=== PATIENT | female | born 1950 | race Caucasian/White ===

== ENCOUNTER → 2019-05-17 10:17 | Outpatient (CLI) | payer MEDICARE, OTHER, SELFPAY ==
--- NOTE | 2019-05-17 10:22 | BI_ITS ---
MAMMOGRAPHY - BILATERAL SCREENING REASON FOR EXAM: Female, 68 years old. Routine annual screening examination. PERTINENT HISTORY: Aunt with breast cancer. Remote right breast aspiration. TECHNIQUE: Digital bilateral breast kaden (3D mammographic acquisition) in the CC and MLO projections. 2-D mediolateral oblique (MLO) and craniocaudad (CC) views of both breasts were obtained. CAD: Full Field Digital Mammography with Computer Added Detection was performed. COMPARISON: Comparison is made with prior study dated September 02, 2016 and August 22, 2015. FINDINGS: Breast Composition: The breasts are heterogeneously dense, which may obscure small masses. There are no dominant masses or suspicious calcifications. Stable bilateral scattered calcifications as well as small bilateral axillary lymph nodes. No other significant abnormalities are identified. There has been no significant change since the prior study. BI/SCREEN MAMM (CAD) W/KADEN BILAT IMPRESSION: Stable bilateral screening mammogram. Yearly follow-up mammogram recommended. (A) ASSESSMENT CATEGORY: BIRADS Category 2: Benign. A letter regarding these results will be sent to the patient by the facility within 30 days. Approximately 10% of breast cancers are not detected by mammography. A normal mammogram should not delay biopsy of a clinically suspicious abnormality. [id number] Electronically Signed: Woody Whitt, at 11:32 EDT , Service support ,
== END ==
PROVIDERS: Family Provider Family Medicine; PCP Family Medicine; Referring Provider Obstetrics & Gynecology; Visit Provider Obstetrics & Gynecology
DX: Z12.31 Encounter for screening mammogram for malignant neoplasm of breast (principal); Z80.3 Family history of malignant neoplasm of breast
CPT/HCPCS: 77063; 77067

== ENCOUNTER 2020-06-12 14:34 | Observation (INO) | payer MEDICARE, OTHER, SELFPAY ==
[2020-06-11 08:23] VITALS: BMI 30.9
[2020-06-12] VITALS (16 sets, daily range): BP systolic 104–153; BP diastolic 57–97; PULSE 77–108; RESP 14–18; TEMP 35.9–37.2; O2SAT 93–100; BMI 31.3
--- NOTE | 2020-06-12 08:00 | HP_ITS ---
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 Is patient in pain?: No Allergies Sulfa (Sulfonamide Antibiotics) Allergy (Mild, Verified 06/11/20 08:24) Hives tramadol Allergy (Mild, Verified 06/11/20 08:24) Hives Medications B-complex with vitamin C 1 cap PO DAILY 06/11/20 [History Confirmed 06/11/20] aspirin 81 mg tablet,delayed release 81 mg PO DAILY 06/11/20 [History Confirmed 06/11/20] calcium ayq-cja-H1-Xu-lqjnnx-Hx-boron 250 mg-40 mg-125 unit tablet tab PO 06/11/20 [History] cholecalciferol (vitamin D3) 100 mcg (4,000 unit) capsule 100 mcg PO DAILY 06/11/20 [History] lisinopril 10 mg tablet PO 06/11/20 [History Confirmed 06/11/20] lovastatin 10 mg tablet mg PO 06/11/20 [History Confirmed 06/11/20] mecobalamin (vitamin B12) 5,000 mcg lozenge 5,000 mcg PO DAILY 06/11/20 [History Confirmed 06/11/20] omeprazole 40 mg capsule,delayed release PO BID cap 06/11/20 [History Confirmed 06/11/20] [facility] Medical History Barretts esophagus (Acute) Cholelithiasis (Acute) High cholesterol (Acute) HTN (hypertension) (Chronic) Surgical History History of ankle surgery (Acute) S/P hysterectomy (Acute) Status post shoulder surgery (Acute) Family History Father Colon cancer Sister Hypertension Kidney disease Thyroid disorder Grandfather Heart disease Social History (Updated 06/11/20 @ 08:[address] Asher Malhotra MD) Smoking Status: Never smoker alcohol intake: never HPI HPI HPI: SPEEDY ORANTES, is a 69 F who presents to the office today for HPI HPI Surgical H&P: Yes HPI: SPEEDY ORANTES, is a 69 F who presents to the office today for gallbladder issues. Patient reports that for the last 10 years she has been having episodic pain that is in her epigastric region as well as into her chest. She has had several stress tests which are all come back normal. Her last CTA showed multiple calcified gallstones the gallbladder. Patient reports that this last episode she had lasted longer than any of her episodes and she did have nausea and vomiting. ROS General General: No weight change or fatigue Musc Musculoskeletal: Yes back problems and arthritis Cardio Cardiovascular: Yes high blood pressure; no murmur, pacemaker, heart disease, atrial fibrillation, heart attack, heart stent, palpitations, shortness of breat with exertion or chest pain Psych Psychiatric: No depression or anxiety Resp Respiratory: No shortness of breath, No sleep apnea, No cough, No COPD, No asthma, No emphysema, No wheezing Gastro Gastrointestinal: Yes abdominal pain, Yes nausea or vomiting, No diarrhea, No constipation, No blood in stool, No acid reflux, No hemorrhoids, No ulcers, Yes gallbladder problem, No black,tarry stools Epifanio Hematologic: No blood thinners Exam Const General: cooperative Orientation: alert, oriented x3 Resp Effort & Inspection: normal respiratory effort Auscultation: clear to auscultation bilaterally Cardio Rate: regular rate Rhythm: regular rhythm Heart Sounds: no murmurs GI Inspection: non-distended Palpation: soft, nontender Assessment & Plan Problems 1. Calculus of gallbladder with acute on chronic cholecystitis without obstruction K80.12 Plan The patient had a CTA which showed multiple calcified gallstones as well as possible edema of the gallbladder wall. She has had several episodes of this and her last episode was very long and included nausea vomiting and may have been acute cholecystitis. I recommend the patient have a laparoscopic cholecystectomy. I discussed the procedure in detail with the patient. I discussed the risks, benefits, and alternatives of the procedure. I discussed the risks including but not limited to bleeding, infection, injury to surrounding organs such as the liver, bile duct, bowels. I did discuss the possibility of having to convert to an open procedure as well as the possibility that if any injuries occurred this may necessitate further surgery at a tertiary care center. The patient had a COVID test when she was hospitalized last Thursday. This was 6 days ago. I will try to get her gallbladder surgery done this week to be able to use those results as her COVID screening test. Asher Malhotra MD Pager: [facility] [address] [place] [address], [address] [place] [phone] Office: Coding Level of Care Code Off vis,new,level 3 Diagnoses Calculus of gallbladder with acute on chronic cholecystitis without obstruction K80.12 ??Cholelithiasis location: gallbladder ??Cholecystitis presence: with cholecystitis ??Cholecystitis acuity: acute and chronic ??Biliary obstruction: without biliary obstruction I have re-examined the patient. There are no clinical changes since date of exam.
[2020-06-12] MEDS: Lactated Ringers 1,000 ML 100 ML IV ×2 (08:44→11:35)
--- NOTE | 2020-06-12 09:45 | GALL_PTH ---
PATIENT: SPEEDY ORANTES LOC: MS3 U#:[id number] AGE/SX: 69/F ROOM: MS311 RE06/12/[address]: Dr. Asher Malhotra MD : 1950 BED: 1 DIS: 06/13/2020 SPEC #: [id number] RECD: 06/12/20 12:28 STATUS: LORI CHÁVEZ #: [id number] CORNELL: 06/12/20 09:[address]: Asher Malhotra DEPT: SURGICAL PATHOLOGY RECD BY: Jaye Carbajal ENTERED: 06/12/20 13:32 SP TYPE: RACHAEL WILSON DR: Dr. Jose Roberto Yang III, MD Tissues: Gallbladder, NOS Procedures: Surgery Specimen Level III HEADER OPERATION: Laparoscopic cholecystectomy with IOC PRE-OP DIAGNOSIS: Calculus of gallbladder with acute on chronic cholecystitis TISSUE SUBMITTED: Gallbladder MICROSCOPIC DIAGNOSIS Gallbladder, cholecystectomy: Chronic cholecystitis with infarction and denudation of mucosa and cholelithiasis. AM:eliane 06/13/20 MICROSCOPIC DESCRIPTION Slides are reviewed. GROSS DESCRIPTION Received is one container labeled with the patient's name and designated gallbladder. The specimen consists of a gallbladder measuring 8 x 5.5 x 2.5 cm. The external surface is smooth and glistening. Focally, it is granular, hemorrhagic and contains cautery artifact. The lumen of the gallbladder contains yellow-green mucoid bile and a single ovoid black-dark green calculus measuring 3 cm in greatest dimension. The mucosa is bile-stained and without any mass lesions. The gallbladder wall averages 0.5 cm in thickness and is free of mass lesions. Wash Crew Person sections of the gallbladder and the cystic duct at margin of resection are submitted in one cassette. / AM:eliane 06/12/20 TC:3 CPT: 74583
[2020-06-12] MEDS: Cefotetan 2 GM in 0.9% NS 100 ML IV (10:14)
[2020-06-12] MEDS: Bupiv/Epi 0.25% 30 ML Vial (10:42)
--- NOTE | 2020-06-12 10:47 | RAD_ITS ---
STUDY: CHOLANGIOGRAM REASON FOR EXAM: Female, 69 years old. Flank pain Cholecystectomy. TECHNIQUE: 1 CINE LOOP 21 SEC FLUORO TIME AND 8.78 mGy DH Intraoperative fluoroscopy. For intraoperative views. COMPARISON: None. FINDINGS: There is opacification of cystic duct and common bile duct. No filling defects are seen the common bile duct to suggest retained stone. Contrast flows easily into the duodenum. RAD/Cholangiogram/ O R,Initial IMPRESSION: There is no evidence of retained stones in the common bile duct. Electronically Signed: Manisha Sandhu, at 12:30 EDT Tel , Service support ,
--- NOTE | 2020-06-12 11:46 | OP.PCM_ITS ---
Problem List (1) Acute cholecystitis Status: Acute Report of Operation Date of Procedure: 06/12/20 Pre-Operative Diagnosis: Cholelithiasis Post-Operative Diagnosis: Acute cholecystitis with cholelithiasis Surgery/Procedure Performed:: Laparoscopic cholecystectomy with cholangiogram Description of Surgical Findings:: Very inflamed gallbladder filled with stones. Normal intraoperative ch olangiogram. Specimen's removed: Gallbladder and contents Description of Procedure: After obtaining informed consent patient was brought back to the operating room. General anesthesia was induced. The abdomen was prepped and draped in usual sterile fashion. A small midline incision was made superior to the umbilicus and deepened to the level of fascia. The fascia was elevated and incised. Next the peritoneum was elevated and incised in the same fashion. Finger sweep was performed and the Dyer trocar was placed into the abdomen. The balloon was inflated. The abdomen was inflated to 15 mmHg. Next a camera was introduced into the abdomen and the abdomen was inspected. Next under direct visualization three 5-mm ports were placed one subxiphoid and 2 subcostal. Next the gallbladder was elevated and retracted toward the right shoulder. The peritoneum was stripped from the gallbladder. The gallbladder was very inflamed and tightly adherent to the duodenum. It was dissected free bluntly. The infundibulum was located and retracted laterally. Next the triangle of Calot was dissected and the cystic duct and cystic artery were identified. Cholangiograms were performed. The Hauser clamp was used to clamp across the infundibulum and the catheter needle was inserted into the gallbladder. Under fluoroscopy contrast was instilled into the gallbladder and the common duct, cystic duct as well as proximal hepatic ducts were identified. There was good filling of the duodenum. There were no filling defects noted in the common bile duct. The clamp was removed as well as the needle and the infundibulum was grasped once more. Three hemolock clips were placed across the cystic duct. The cystic duct was then divided leaving 2 clips on the stump. The cystic artery was clipped and divided in the same fashion. The hook cautery was then used to take the gallbladder off of the gallbladder bed. Hemostasis was obtained. Gallbladder fossa was irrigated and no active bleeding or bile leakage was noted. Next the camera was introduced in the subxiphoid port. An Endopouch bag was placed through the umbilical port and the gallbladder was placed into it. The gallbladder was then removed through the umbilical incision. The camera was then reinserted through the umbilical port. The gallbladder fossa was inspected once more and noted to be hemostatic with no leaking bile. The abdomen was suctioned dry. The 5 mm ports were removed under direct visualization. The umbilical port was then removed and the air was sandip kulwinder from the abdomen. Next using an 0 Vicryl suture the umbilical fascia was closed in a jdzzre-as-vztxe fashion. The umbilical port site was irrigated local anesthetic was administered to all the incisions. All the incisions were closed with interrupted subcuticular 4-0 Monocryl sutures followed by Steri- Strips and dressings. The patient was awoken and taken to PACU in stable condition. - Admit VTE Documentation VTE Mechan Device Prophylaxis: SCD's
--- NOTE | 2020-06-12 11:53 | DCINST_ITS ---
Discharge Diet: Light diet - advance as tolerated Discharge Activity: Return to Normal Activity, May Not Drive - for 2-3 days or while taking narcotic pain medicataions., - - Do not drive, work heavy equipment or sign legal documents for 24 hours. May shower in (days): 1 - with the bandage in place. Lifting Restrictions: 20 lbs Additional Activity Instructions:: Pain medication may cause nausea. You should typically eat light foods as you take your pain medications. Pain medication may also cause constipation. If this is a problem for you, please discuss with your doctor. Call your doctor if your incision/area has: Continuous Slow Oozing, Sudden Increased Bleeding, Increased Pain/ Swelling, Increased Redness, Foul Smelling Discharge, Fever of 101 or Higher Call your doctor if you observe: Fever of 101 or Higher Suture Line Care: Avoid Pulling/Pushing, Avoid Pinching/Bending Additional Dressing/Incision Instructions:: Leave operative bandaids on for 2 days. When you remove dressing, leave Steri-Strips on until your follow-up appointment, or until the Steri-Strips fall off on their own. Allergies/Adverse Reactions: Allergies Sulfa (Sulfonamide Antibiotics) Allergy (Mild, Verified 06/12/20 08:23) Hives tramadol Allergy (Mild, Verified 06/12/20 08:23) Hives Medications to take at Discharge B-complex with vitamin C 1 cap PO DAILY 06/11/20 aspirin 81 mg tablet,delayed release 81 mg PO DAILY 06/11/20 calcium pah-muh-L9-Cz-lirixe-Qp-boron 250 mg-40 mg-125 unit tablet 1 tab PO DAILY 06/11/20 cholecalciferol (vitamin D3) 100 mcg (4,000 unit) capsule 5,000 unit PO DAILY 06/11/20 lisinopril 10 mg tablet 10 mg PO QHS 06/11/20 lovastatin 10 mg tablet 10 mg PO QHS 06/11/20 mecobalamin (vitamin B12) 5,000 mcg lozenge 4,000 mcg PO DAILY 06/11/20 omeprazole 40 mg capsule,delayed release 40 mg PO BID cap 06/11/20 Test Results: Test results from this visit will be discussed in further detail at your follow- up appointment, if applicable. Please Follow Up With: Asher Malhotra MD When: Please call to schedule 2 week follow up appointment. [phone]
[2020-06-12] MEDS: oxyCODONE 5 MG Tablet PO ×2 (15:45→23:39)
[2020-06-12] MEDS: 0.9% Normal Saline 1,000 ML 60 ML IV (16:42)
[2020-06-12] MEDS: Atorvastatin Calcium 10 MG Tablet 5 MG PO (21:15)
[2020-06-12] MEDS: Lisinopril 10 MG Tablet PO (21:16)
[2020-06-12] MEDS: Pantoprazole Sodium 20 MG Tablet PO (21:16)
[2020-06-13 00:02] VITALS: BP 118/77; PULSE 102; RESP 17; TEMP 37.1; O2SAT 93
[2020-06-13 00:03] VITALS: BMI 31.3
[2020-06-13 04:22] VITALS: BP 122/63; PULSE 84; RESP 17; TEMP 36.8; O2SAT 94; BMI 31.3
[2020-06-13 06:55] LABS: Absolute Lymphocyte Count 1.21 X10^3/uL (0.83-4.51); Absolute Neutrophil Count 5.5 X10^3/uL (2.0-7.7); Basophil# 0.01 X10^3/uL; Basophil% 0.1 % (0-1); Eosinophil# 0.02 X10^3/uL; Eosinophils% 0.3 % (0-5); Hematocrit 35.8 % (37-47); Hemoglobin 11.3 g/dL (12.0-15.0); Lymphocyte # 1.21 X10^3/ul (4.0); Lymphocyte % 16.3 % (19-41); Mean Corp Hgb Conc 31.6 g/dL (32-36); Mean Corpuscular Volume 98.4 fL (81-99); Mean Platelet Vol. 9.9 fl (6.2-12.0); Monocyte# 0.67 X10^3/uL; NRBC Flagged by Analyzer 0 % (0-5); Neutrophil # 5.49 X10^3/uL (2.7-7.7); Platelet Count 285 K/mm3 (150-450); RBC Distribution Width CV 12.3 % (11.6-14.6); Red Blood Count 3.64 M/mm3 (4.2-5.4); White Blood Count 7.4 K/mm3 (4.4-11.0)
[2020-06-13 07:22] LABS: Anion Gap 4 (5-15); BUN 9 mg/dL (7-18); BUN/Creat Ratio 13.5 RATIO (10-20); Calcium,Total 8.6 mg/dL (8.5-10.1); Chloride 110 mmol/L (98-107); Creatinine, Serum 0.66 mg/dL (0.55-1.02); EST Glomerular Filtration Rate 94 mL/min (>60); Est Glom Filt Rate - Afr Amer 114 mL/min (>60); Estimated Creatinine Clearance 43.18 ml/min; Glucose 92 mg/dL (74-106); Potassium 3.7 mmol/L (3.5-5.1); Sodium Level 143 mmol/L (136-145)
[2020-06-13] MEDS: Acetaminophen 325 MG Tablet 650 MG PO (08:44)
[2020-06-13] MEDS: Pantoprazole Sodium 20 MG Tablet PO (08:44)
[2020-06-13] MEDS: oxyCODONE 5 MG Tablet PO (08:44)
[2020-06-13 09:09] VITALS: BP 105/61; PULSE 99; RESP 18; TEMP 36.9; O2SAT 100
== END 2020-06-13 09:30 | disposition home or self-care (01) ==
LOC: SDC 15:06 → MS3 15:06
PROVIDERS: Admitting Provider Surgery; PCP Family Medicine; Referring Provider Surgery; Visit Provider Surgery
PROC: (CPT 47610; principal; 2020-06-12 09:25)
DX: K80.12 Calculus of gallbladder with acute and chronic cholecystitis without obstruction (principal); E78.00 Pure hypercholesterolemia, unspecified; I10 Essential (primary) hypertension; K22.70 Barrett's esophagus without dysplasia; Z79.899 Other long term (current) drug therapy; Z79.82 Long term (current) use of aspirin; M19.90 Unspecified osteoarthritis, unspecified site; K21.9 Gastro-esophageal reflux disease without esophagitis
CPT/HCPCS: 00790; 47563; 36415; 74300; 76000; 80048; 85025; 88304; 99218; 99251; J7030; J7120; G0378; G0379; G0463; J2405

== ENCOUNTER → 2020-06-29 14:18 | Outpatient (CLI) | payer MEDICARE, OTHER, SELFPAY ==
[2020-06-12 16:29] VITALS: BMI 31.3
--- NOTE | 2020-06-29 14:18 | US_ITS ---
STUDY: THYROID ULTRASOUND REASON FOR EXAM: Female, 69 years old. NODULE ON SEEN CT TECHNIQUE: Ultrasound evaluation of the thyroid was performed with real-time and static cavazos-scale imaging. COMPARISON: None. FINDINGS: RIGHT LOBE: The right lobe of the thyroid gland measures 4 cm x 1.7 cm x 1.9 cm. There is a homogeneous echotexture. 3 hypoechoic solid nodules are seen. The largest nodule is in the inferior pole measuring 1.2 cm x 1 cm x 0.8 cm. A similar-appearing nodule is seen in the superior pole measuring 1.2 cm x 1 cm x 0.7 cm. A 0.5 cm x 0.6 cm x 0.5 cm hypoechoic solid nodule is also seen in the midpole. LEFT LOBE: The left lobe of the thyroid gland measures 3.5 cm x 1.7 cm x 1.7 cm. There is a homogeneous echotexture. There are no demonstrated solid, cystic or complex lesions. ISTHMUS: The isthmus measures 4.0 mm. There is a 1.9 cm x 0.7 cm x 0.4 cm right cervical lymph node as well as a 1.2 cm x 0.6 cm x 0.5 cm well-defined benign-appearing lymph node in the left cervical region. US/Thyroid IMPRESSION: 3 hypoechoic solid nodules are seen in the right lobe as described. The largest is in the inferior pole measuring 1.2 cm x 1 cm x 0.8 cm. Electronically Signed: Woody Whitt, at 9:10 EDT , Service support ,
== END ==
PROVIDERS: PCP Family Medicine; Referring Provider Surgery; Visit Provider Surgery
DX: E04.1 Nontoxic single thyroid nodule (principal)
CPT/HCPCS: 76536

== ENCOUNTER → 2020-07-13 12:30 | Outpatient (CLI) | payer MEDICARE, OTHER, SELFPAY ==
--- NOTE | 2020-07-13 12:30 | ASPS_PTH ---
PATIENT: SPEEDY ORANTES LOC: [facility] U#:[id number] AGE/SX: 74/F ROOM: RE07/13/[address]: Dr. Robert Yang MD : 1950 BED: DIS: SPEC #: [id number] RECD: 07/13/20 14:16 STATUS: LORI KYLER #: [id number] CORNELL: 07/13/20 12:[address]: Robert Yang DEPT: CYTOLOGY RECD BY: Kate Schwarz ENTERED: 07/16/20 08:20 SP TYPE: ASPIRATION OTHR DR: Dr. Jose Roberto Yang III, MD Tissues: Thyroid gland, NOS Procedures: Special Stain Group II Cytology Other HEADER OPERATION: Right thyroid FNA PRE-OP DIAGNOSIS: Right thyroid nodule TISSUE SUBMITTED: Right mid thyroid slides x12 DIAGNOSIS CYTOLOGY Right mid thyroid nodule, FNA (smears): Consistent with benign follicular/colloid nodule. Adequate for evaluation. See comment. SJ:eliane 07/17/20 COMMENT Correlation with clinical, radiologic findings and appropriate follow up are necessary. CYTOLOGY STUDY Slides are reviewed. CYTOLOGY GROSS Received are 12 smears labeled with the patient's name and designated per the requisition as right thyroid. Submitted for staining. / eliane 07/16/20 TC:5 CPT: 54297
[2020-07-13 12:41] VITALS: BMI 31.5
== END ==
PROVIDERS: PCP Family Medicine; Referring Provider Surgery; Visit Provider Surgery
DX: E04.1 Nontoxic single thyroid nodule (principal)
CPT/HCPCS: 88161; 88313

== ENCOUNTER → 2022-02-13 | Outpatient (CLI) | payer MEDICARE, OTHER, SELFPAY ==
--- NOTE | 2022-02-13 14:05 | BD_ITS ---
STUDY: DUAL ENERGY X-RAY ABSORPTIOMETRY / DXA REASON FOR EXAM: Female, 71 years old. 733.00OsteoporosisBONE DENSITY REASON FOR EXAM TECHNIQUE: Bone Mineral Density (BMD) measurements of lumbar spine and bilateral hips were obtained. COMPARISON: Comparison is made with prior examination dated 09/04/2015. FINDINGS: Lumbar Spine (L1-L4): g/cm2 (0.970) / T-score (-0.4) / Z-score (1.6) Findings are suggestive of normal bone density with a low fracture risk. Left Femur Total: g/cm2 (0.787) / T-score (-1.3) / Z-score (0.2) Left Femoral Neck: g/cm2 (0.651) / T-score (-1.8) / Z-score (0.0) Right Femur Total: g/cm2 (0.75) / T-score (-1.3) / Z-score (0.2) Right Femoral Neck: g/cm2 (0.694) / T-score (-1.4) / Z-score (0.4) Left Forearm: g/cm2 (0.587) / T-score (-1.8) / Z-score (0.2) The T-Scores on the most recent prior examination were: Lumbar Spine (L1-L4): There has been worsening of bone density since the previous examination. Left Femur Total: which represents a worsening of 2.1%. Right Femur Total: which represents a worsening of 3.6%. BD/DXA BONE DENS W/VERT FX ASMT IMPRESSION: The patient is considered osteopenic as outlined below according to World Russ Organization (WHO) criteria with a moderate fracture risk. There has been worsening of bone density since the previous examination. Reference Information: The T-score is the number of standard deviations above or below the standard which is normal for young adults at their peak bone mineral density. The World Health Organization (WHO) interprets the T-scores as follows: Above -1 Normal bone density Between -1 and -2.5 Osteopenia Equal to / or below -2.5 Osteoporosis As a practical clinical guideline, osteopenia may be graded as follows: Mild -1 through -1.5 Moderate -1.6 through -2.0 Severe -2.1 through -2.4 The Z-score is the number of standard deviations above or below age-matched controls. A Z-score of less than -1.5 would be considered abnormal. References: 1. NIH Osteoporosis and Related Bone Diseases www osteo.org 2. International Society for Clinical Densitometry www iscd.org 3. National Osteoporosis Foundation www nof.org Electronically Signed: Woody Whitt MD at 10:21 EDT ,
== END | disposition home or self-care (01) ==
PROVIDERS: PCP Internal Medicine; Referring Provider Internal Medicine; Visit Provider Internal Medicine
DX: M81.0 Age-related osteoporosis without current pathological fracture (principal)
CPT/HCPCS: 77085

== ENCOUNTER → 2023-12-16 | Outpatient (CLI) | payer OTHER, SELFPAY ==
--- NOTE | 2023-12-16 11:39 | RAD_ITS ---
STUDY: X-RAY - LEFT ANKLE REASON FOR EXAM: Female, 73 years old. Fall from ladder TECHNIQUE: 3 view(s) of the ankle. COMPARISON: None. FINDINGS: Healed medial malleolar fracture. Prior ORIF of the distal fibula. No acute fracture seen. Normal tibiotalar articulation and ankle mortise. Calcaneal spurs. The visualized subtalar, talonavicular, calcaneocuboid and tarsal articulations are normal. The soft tissue structures are unremarkable. RAD/Ankle min 3 Views IMPRESSION: No acute abnormality is seen. Electronically Signed: Woody Whitt MD at 12:15 EDT ,
--- NOTE | 2023-12-16 11:39 | RAD_ITS ---
STUDY: X-RAY - LEFT TIBIA AND FIBULA REASON FOR EXAM: Female, 73 years old. Left leg contusion TECHNIQUE: 2 view(s) of the tibia and fibula were obtained. COMPARISON: None. FINDINGS: Normal visualized tibia. Healed proximal fibular fracture. Prior ORIF of the distal fibula. No acute fracture seen. The soft tissue structures are unremarkable. RAD/Tibia & Fibula 2 Views IMPRESSION: No acute fractures seen. Healed proximal fibular fracture as well as ORIF of the distal fibular fracture. Electronically Signed: Woody Whitt MD at 12:16 EDT ,
== END | disposition home or self-care (01) ==
LOC: MTRAD 11:38
PROVIDERS: Referring Provider Physician Assistant Surgical; Visit Provider Physician Assistant Surgical
DX: S86.912A Strain of unspecified muscle(s) and tendon(s) at lower leg level, left leg, initial encounter (principal); W11.XXXA Fall on and from ladder, initial encounter
CPT/HCPCS: 73590; 73610

== ENCOUNTER → 2023-12-31 | Outpatient (CLI) | payer OTHER, MEDICARE, SELFPAY ==
--- NOTE | 2023-12-31 11:14 | RAD_ITS ---
STUDY: X-RAY - LEFT TIBIA AND FIBULA REASON FOR EXAM: Female, 73 years old. Work injury TECHNIQUE: 3 view(s) of the tibia and fibula were obtained. COMPARISON: None. FINDINGS: Normal visualized tibia. Deformity of the proximal fibula most likely secondary to old healed trauma. Prior ORIF of the distal ulnar fracture. The soft tissue structures are unremarkable. RAD/Tibia & Fibula 2 Views IMPRESSION: Status post ORIF of the distal fibula fracture. No acute fractures seen. Electronically Signed: Woody Whitt MD at 12:09 EDT ,
== END | disposition home or self-care (01) ==
PROVIDERS: Referring Provider Physician Assistant Surgical; Visit Provider Physician Assistant Surgical
DX: S86.912A Strain of unspecified muscle(s) and tendon(s) at lower leg level, left leg, initial encounter (principal)
CPT/HCPCS: 73590